=== PATIENT | female | born 1990 | race Two or more races ===

== ENCOUNTER → 2023-10-18 | Emergency (ER) | payer OTHER ==
[~2023-10-18] VITALS: Ht 167.6 cm; Wt 77.1 kg
[~2023-10-18] MED LIST: KETOROLAC TROMETHAMINE 60 MG VIAL IM ONE; KETOROLAC TROMETHAMINE 60 MG VIAL IM STA
[2023-10-18 11:26] LABS: HEMATOCRIT 38.8 % (36.0-45.00); HEMOGLOBIN 12.8 g/dL (12.0-15.00); MEAN CELL VOLUME 89.4 fL (80.00-100.00); MEAN CORPUSCULAR HEMOGLOBIN 29.5 pg (27.00-32.0); PLATELET COUNT 184 K/uL (150-450); RED BLOOD COUNT 4.34 M/uL (4.00-6.00)
[2023-10-18 12:01] LABS: URINE APPEARANCE Clear; URINE BILIRRUBIN Negative (NEGATIVE); URINE BLOOD Small; URINE COLOR Yellow; URINE GLUCOSE Negative (NEGATIVE); URINE KETONE Negative (NEGATIVE); URINE LEUKOCYTE Moderate; URINE NITRATE Negative; URINE PROTEIN 30 (NEGATIVE); URINE UROBILINOGEN 0.2 E.U./dl
[2023-10-18 12:05] LABS: URINE BACTERIA 7491.8 uL (0.0-1933); URINE EPITHELIAL CELLS 9.1 uL (0.0-38.8); URINE RBC 6.1 uL (0.0-20.8); URINE WBC 350.8 uL (0.0-23.2)
[2023-10-18 12:09] LABS: CALCIUM 8.8 mg/dL (8.5-10.1); CREATININE SERUM 0.64 mg/dL (0.55-1.02); GFR 106.87; POTASSIUM 3.76 mEq/L (3.5-5.1)
[2023-10-18 12:13] LABS: URINE CAST 0.76 uL (0.0-1.40)
== END | disposition home or self-care (01) ==
LOC: ER 08:52
PROVIDERS: General Practice
DX: N39.0 Urinary tract infection, site not specified (principal)

== ENCOUNTER 2024-11-27 14:21 | Emergency (ER) | payer OTHER ==
[~2024-11-27] VITALS: Ht 167.6 cm; Wt 82.1 kg
[2024-11-27] MEDS ORDERED: GABAPENTIN 100 MG CAPSULE PO ONE (16:30)
[2024-11-27 17:50] LABS: BASO % 0.3 % (0.1-1.2); EOS # 0.06 (0.04-0.54); EOS % 0.6 % (0.7-7.0); ERYTHROCYTE SEDIMENTATION RATE 14 mm/hr (0-20); LYMPH # 2.60 (1.18-3.74); LYMPH % 28.0 % (19.3-53.1); MEAN PLATELET VOLUME 11.90 fl (9.4-12.4); MONO # 0.89 (0.24-0.82); MONO % 9.6 % (4.7-12.5); NEUT # 5.69 (1.56-6.13); NEUT % 61.3 % (34.0-71.1); RED CELL DISTRIBUTION WIDTH 12.5 % (11.6-14.4)
[2024-11-27] MEDS ORDERED: EC-NAPROSYN500 MG PO (19:56)
[2024-11-27] MEDS ORDERED: NAPROXEN500 MG PO (20:13)
[2024-11-27] MEDS ORDERED: NASAL MIST126 ML NASAL (20:13)
== END 2024-11-27 21:08 | disposition home or self-care (01) ==
LOC: ER 14:21
DX: M25.561 Pain in right knee (principal); M25.562 Pain in left knee